=== PATIENT | female | born 1985 | race Caucasian/White ===

== ENCOUNTER 2025-04-14 13:53 | Emergency (ER) | payer OTHER, SELFPAY ==
[2025-04-14 14:09] VITALS: BP 157/102
[2025-04-14 15:46] LABS: Hematocrit 39.0 % (37.0-47.0); Hemoglobin 13.1 g/dL (12.0-16.0); Mean Corp Hgb Conc. 33.6 g/dL (33.0-37.0); Mean Corpuscular Volume 77.1 fL (81.0-99.0); Nucleated Red Blood Cells % 0 %; Platelet Count 242 10^3/uL (130-400); Red Cell Dist. Width 13.2 % (11.5-14.5)
[2025-04-14 15:58] LABS: HCG, Serum Qualitative Screen Negative
[2025-04-14 16:00] LABS: Blood Urea Nitrogen 9 mg/dl (7-17); Calcium 9.7 mg/dl (8.4-10.2); Carbon Dioxide 24 mmol/L (22-30); Chloride 104 mmol/L (98-107); Glucose 99 mg/dl (70-99); Magnesium 2.2 mg/dl (1.6-2.3); Potassium 4.2 mmol/L (3.5-5.1); Sodium 138 mmol/L (135-145); eGFR > 60.00
--- NOTE | 2025-04-14 16:28 | ED.GENMED ---
History of Present Illness
General
Chief Complaint: Anxiety
Source: patient
Exam Limitations: none
Time Seen by Provider: 04/14/25 15:04
Nursing documentation reviewed up to this point in time: agreed with
History of Present Illness
History of Present Illness:
Patient is a 40-year-old female with history hypertension, anxiety who presents to the emergency department after experiencing suspected panic attack. She states that she was at work when she started to feel chest palpitations. She then felt that
she could not take a deep breath and experienced a stiffness in her arms/hands. 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 She states that symptoms resolved without
intervention after a few minutes.
By arrival to the emergency department, she is feeling much better. She denies any exertional chest pain, fever, or chills. She denies any current numbness/tingling or stiffness in extremities. She has no current shortness of breath
She suspects that she may have had a panic attack as she has had similar episodes a few times in the past. She is unsure what may have sparked the anxiety today.
Patient does take a few medications for anxiety. She has not close she follows with outpatient as well as psychiatrist who prescribes her medications. She denies any suicidal ideations or homicidal ideations.
Review of Systems
Review of Systems
Allergies reviewed?: Yes
All Other Systems: ROS reviewed and negative except as documented in HPI and ROS
Phy Exam
Physical Exam
Physical Exam:
Vitals: Hypertensive, otherwise vital signs stable. Afebrile
General: Patient is well appearing, no acute distress. Nontoxic appearing
Skin: Warm and dry, no rashes or lesions
Head: Normocephalic, atraumatic
Eyes: Sclera nonicteric.
Throat: Protecting airway
Neck: Normal ROM, no cervical spine tenderness, no meningismus
Cardiac: Regular rate and rhythm, no murmurs.
Pulm: Normal respiratory effort. Lungs clear bilaterally
Abdomen: No abdominal tenderness.
Extremities: No evidence of cyanosis or edema. Perfusing well
Neuro: AAOx3. Grossly intact.
Psychiatric: Normal affect.
Course
Orders/Labs/Results
Orders:
Orders
04/14/25 14:42
ECG [Electrocardiogram (*1)] Urgent
Reason for Study: Palpitations
EKG- Treatment ONCE
04/14/25 15:20
Test Result ONCE
04/14/25 15:36
Basic Metabolic Panel Urgent
Complete Blood Count/With Diff Urgent
HCG, Serum Qualitative Screen Urgent
Magnesium Urgent
TSH Reflex To Free T4 Urgent
Abnormal Lab Results
04/14/25
15:36
MCV 77.1 L fL
(81.0-99.0)
MCH 25.9 L pg
(27.0-31.0)
Lymphocytes % 19.0 L %
(20.5-51.1)
04/14/25 15:36
04/14/25 15:36
Vital Signs
Initial and Last Documented VS:
Initial Vital Signs
Temp Pulse Resp BP Pulse Ox
98.2 F 110 20 157/102 96
04/14/25 14:09 04/14/25 14:09 04/14/25 14:09 04/14/25 14:09 04/14/25 14:09
Last Documented Vital Signs
Temp Pulse Resp BP Pulse Ox
98.2 F 92 20 157/102 96
04/14/25 14:09 04/14/25 14:48 04/14/25 14:09 04/14/25 14:09 04/14/25 20:56
MDM/Problems Addressed
Differential Diagnosis Includes:
Not limited to: Panic attack, anxiety, electrolyte abnormality, hyperthyroid, cardiac arrhythmia, etc.
MDM/Problems Addressed:
40-year-old female presenting after suspected panic attack while at work. No known inciting event. Symptoms improved by arrival to ED. She�s mildly tachycardic on arrival which improved quickly. Otherwise, vital signs stable. On exam, patient well
appearing and in no distress. Heart regular rate and rhythm. Lungs clear bilaterally. No lower extremity pain or swelling.
Clinical picture most consistent with panic attack. No evidence of acute cardio/pulmonary process.
Labs unremarkable without evidence of electrolyte abnormality or thyroid dysfunction.
She has history of anxiety and follows with outpatient therapist and psychiatry. No SI or HI. She declines crisis consult.
As patient has remained asymptomatic and well appearing in ED � feel stable for discharge home. Strict return precautions discussed. Patient comfortable with plan.
Chronic conditions affecting care:
Anxiety
Acute Exacerbation and/or Progression of Chronic Illness:
N/A
*Pulse Oximetry
SaO2: 96
Oxygen Mode of Delivery: Room air
Patient hypoxic: no
*EKG
Interpreted by ED Provider?: Yes
EKG Intrepretation Date: 04/14/25
Interpretation: abnormal
Comparison EKG: no comparison EKG present
Heart Rate: 98
Rate: normal
Rhythm: sinus
[place]: normal axis
Interval: normal QT interval
QRS Pattern: normal QRS
Ischemia: non-specific ST changes
*Roll Reclaimer Interpretation
Rate: Roll Reclaimer- N/A
*Critical Care Note
Total Time (30-74mins, 75-104mins- exclusive of procedures): Not Applicable
ED Attending Note
-
Portions of this chart may have been created with voice recognition software.� Occasional wrong word or��sound alike� substitutions may have occurred due to the inherent limitations of voice recognition software.
Discharge Plan
Departure
Patient Disposition: Home (Routine Discharge)
Date of Disposition: 04/14/25
Time of Disposition: 16:38
Patient with high blood pressure during this ER visit?: Yes
Condition: Good
Discharge Problem:
Panic attack
Instructions: Anxiety, Adult (DC), BLOOD PRESSURE
Referrals:
Cameron Ohara MD [Family Provider, Family Practice] - Follow up in 5-7 days
Activity Restrictions/Additional Instructions:
RETURN TO THE EMERGENCY DEPARTMENT WITH ANY CHEST PAIN, SHORTNESS OF BREATH DIFFICULTY BREATHING, THOUGHTS OF HARMING YOURSELF OR OTHERS, ANY SAFETY CONCERNS, WORSENING IN CURRENT SYMPTOMS, OR ANY OTHER CONCERNS
- As discussed your lab work showed no acute abnormalities today in the emergency department. Your symptoms seem consistent with a panic attack.
- Please continue to take your medications as prescribed. Follow-up with your primary care, psychiatrist, and therapist for further management outpatient
Monitor your symptoms closely and return to the emergency department with any acute worsening/new symptoms or any other concerns
Interventions
Interventions:
*Risk Screen - Suicide Last Done: 04/14/25 14:09
*General Assessment Last Done: 04/14/25 14:09
*Neglect/Abuse Screening Last Done: 04/14/25 14:09
*Nursing Disposition Last Done: 04/14/25 16:50
ED-Psychological Assessment Last Done: 04/14/25 16:00
Discharge Date and Time
Discharge Date/Time: 04/14/25 17:11
Print Language: CYPRIOT
== END 2025-04-14 17:11 | disposition home or self-care (01) ==
LOC: EMR 13:53
PROVIDERS: Physician Assistant; EMERGENCY PHYSICIAN Student in an Organized Health Care Education/Training Program; FAMILY PHYSICIAN Family Medicine
DX: F41.0 Panic disorder [episodic paroxysmal anxiety] (principal); I10 Essential (primary) hypertension; F41.9 Anxiety disorder, unspecified
CPT/HCPCS: 99284; 80048; 83735; 84443; 84703; 85025; 93005